=== PATIENT | male | born 1985 | race African-American/Black ===

== ENCOUNTER 2018-04-27 13:52 | Emergency (ER) | payer SELFPAY ==
[~2018-04-27] VITALS: Ht 195.6 cm; Wt 84.9 kg
[2018-04-27 13:54] VITALS: BP 132/89
== END 2018-04-27 14:35 | disposition home or self-care (01) ==
LOC: ED 14:15
DX: K02.9 Dental caries, unspecified (principal)
CPT/HCPCS: 99283